=== PATIENT | male | born 1940 | race Caucasian/White ===

== ENCOUNTER 2017-06-29 07:38 | Day surgery (SDC) | payer MEDICARE ==
[~2017-06-29] VITALS: Ht 177.8 cm; Wt 80.3 kg
[~2017-06-29 07:38] MED LIST: ASPIRIN EC81 MG PO; BYSTOLIC5 MG PO; FISH OIL1000 M2 PO; HYZAAR1 TA2 PO; LOPID600 MG PO; PRILOSEC20 MG PO; SPIRIVA IN
[2017-06-29 10:18] VITALS: BP 122/68
== END 2017-06-29 10:30 | disposition home or self-care (01) ==
LOC: ENDO 07:38
PROVIDERS: ATTEND Internal Medicine Gastroenterology
PROC: 0DB48ZX Excision of Esophagogastric Junction, Via Natural or Artificial Opening Endoscopic, Diagnostic (ICD-10-PCS; principal; 2017-06-29)
PROC: 0DB68ZX Excision of Stomach, Via Natural or Artificial Opening Endoscopic, Diagnostic (ICD-10-PCS; 2017-06-29)
DX: C16.9 Malignant neoplasm of stomach, unspecified (principal); K21.9 Gastro-esophageal reflux disease without esophagitis; K29.70 Gastritis, unspecified, without bleeding; K44.9 Diaphragmatic hernia without obstruction or gangrene; Q40.8 Other specified congenital malformations of upper alimentary tract; I10 Essential (primary) hypertension; J44.9 Chronic obstructive pulmonary disease, unspecified